=== PATIENT | female | born 1965 | race Caucasian/White ===

== ENCOUNTER 2023-03-24 09:52 | Outpatient (CLI) | payer OTHER, SELFPAY | END 2023-03-24 09:53 | disposition home or self-care (01) | LOC: MEDOUTP 09:52 | PROVIDERS: Referring Provider Internal Medicine Hematology & Oncology; Visit Provider Internal Medicine Hematology & Oncology | DX: Z00.00 Encounter for general adult medical examination without abnormal findings (principal) ==